=== PATIENT | male | born 2000 ===

== ENCOUNTER 2020-02-29 01:50 | Emergency (ER) | payer MEDICAID, SELFPAY ==
[2020-02-29 02:10] VITALS: PULSE 69; RESP 16; TEMP 36.6; O2SAT 98; BMI 26.8
--- NOTE | 2020-02-29 02:16 | PC.NURSE ---
PT TO ROOM WITH C/O LEFT LOWER DENTAL PAIN WHICH STARTED YESTERDAY.
--- NOTE | 2020-02-29 03:07 | ED.DENTAL ---
HPI - Dental/Oral General Chief complaint: Dental/Oral Stated complaint: DENTAL PAIN Time Seen by Provider: 02/29/20 03:07 History of Present Illness HPI Narrative: Patient complaining of left lower jaw pain. Dental pain. Worse with chewing. Patient denies any change in voice. No difficulty breathing. No nausea no vomiting. No systemic complaints. Pain is been ongoing for few days. Related Data Previous Rx's Medication Instructions Recorded ibuprofen 400 mg PO Q6H PRN #20 tab 02/29/20 penicillin V potassium 500 mg PO TID 7 Days #21 tab 02/29/20 Allergies Allergy/AdvReac Type Severity Reaction Status Date / Time No Known Allergies* Allergy Uncoded 01/17/20 23:40 Review of Systems Review of Systems: Constitutional: No Weight loss, No Fever, No Chills, No Night Sweats, No Fatigue, No Malaise ENT/Mouth: No Hearing loss, No Ear Pain, No Nasal Congestion, No Sinus Pain, No Hoarseness, No sore throat, No Rhinorrhea, No Swallowing Difficulty, positive pain to left lower jaw Eyes: No Eye Pain, No Swelling, No Redness, No Foreign Body, No Discharge, No Vision Changes Cardiovascular: No Chest Pain, No SOB, No Dyspnea on Exertion, No Orthopnea, No Edema, No Palpitations Respiratory: No Cough, No Sputum, No Wheezing, No Smoke Exposure, No Dyspnea Gastrointestinal: No Nausea, No Vomiting, No Diarrhea, No Constipation, No abdominal Pain, No Hematochezia, No Melena Genitourinary: no irregular bleeding, No Dysuria, No Urinary Frequency, No Hematuria, No Urinary Incontinence, No Urgency, No Flank Pain, No Urinary Flow Changes, No Hesitancy Musculoskeletal: No joint pain, No Myalgias, No Joint Swelling Skin: No Skin Lesions, No rash Neuro: No Weakness, No Numbness, No Paresthesias, No Loss of Consciousness, No Dizziness, No Headache Psych: No Anxiety/Panic, No Depression, No SI/HI/AH/VH, No Social Issues, Heme/Lymph: No Bruising, No Bleeding,No Lymphadenopathy Endocrine: No Polyuria, No Polydipsia, No Temperature Intolerance PMFSH Social History Social History Advance Directives: No Advance Directives Information Provided: No Physical Exam Vital Signs: Vital Signs: Last Vital Signs Temp 97.8 F 02/29/20 02:10 Pulse 69 02/29/20 02:10 Resp 16 02/29/20 02:10 Pulse Ox 98 02/29/20 02:10 Body Mass Index 26.8 Appearance: Alert. Oriented X3. No acute distress. Eyes: Pupils equal, round and reactive to light. ENT: Mucous membrane is moist. There is no tenderness on palpation of the mandibular floor. There is no gross abscess palpable in the left lower mandibular area, posterior pharynx is normal. There is no discharge noted. Neck: Normal inspection. Neck supple. No lymph nodes noted. No crepitus CVS: Normal heart rate and rhythm. Pulses normal. Normal S1 and S2 Respiratory: No respiratory distress. Breath sounds normal. No Wheezing. No rales Abdomen: Soft and nontender. No rigidity. No distention. good BS x4 Skin: Skin warm and dry. Normal skin color. Normal skin turgor. Extremities: No lower extremity edema. Neurovascular intact to all extremities. No Lacerations. No Rash Neuro: Oriented X 3. No motor deficit. No sensory deficit. Moving all extermities. No slurred speech MDM - Dental/Oral MDM Narrative Medical decision making narrative: Patient well-appearing no acute distress. Floor the mouth was soft. There is no redness noted in the posterior pharynx. There is no gross abscess noted. There is no gross cavity noted. Given patient's pain will give Motrin. Will give antibiotics. Will have patient follow-up with dentistry in a.m.. Differential Diagnosis Differential diagnosis: Likely toothache Medical Records Attestation: I reviewed the patient's medical records. Lab Data Attestation: I reviewed the patient's lab results. Discharge Plan Discharge Clinical Impression: Toothache Patient Disposition: Home, Self-Care Instructions: Toothache (ED) Prescriptions: New ibuprofen 400 mg tablet 400 mg PO Q6H PRN (Reason: pain) Qty: 20 RF: 0 penicillin V potassium 500 mg tablet 500 mg PO TID 7 Days Qty: 21 RF: 0 Referrals: [facility] [Provider Group] - 2 days
[2020-02-29] MEDS: Ibuprofen 400 MG TABLET PO (03:32)
[2020-02-29] MEDS: Penicillin V Potassium 250 MG TABLET 500 MG PO (03:33)
== END 2020-02-29 03:47 | disposition home or self-care (01) ==
PROVIDERS: Emergency Provider Emergency Medicine Emergency Medical Services
DX: K08.89 Other specified disorders of teeth and supporting structures (principal)
CPT/HCPCS: 99283

== ENCOUNTER 2020-03-01 04:51 | Emergency (ER) | payer MEDICAID, SELFPAY ==
[2020-03-01 04:59] VITALS: BP 126/79; PULSE 66; RESP 16; TEMP 36.5; O2SAT 100; BMI 25.1
--- NOTE | 2020-03-01 05:19 | ED.GENADULT ---
HPI - General Adult General Chief complaint: General Medical Stated complaint: MOUTH SWELLING Time Seen by Provider: 03/01/20 05:19 History of Present Illness HPI narrative: Patient is a 20-year-old male presents today with having pain to the lower left jaw. Patient complaining of increasing pain from yesterday. Was seen here in the emergency department started on penicillin and ibuprofen. Patient states that despite the medication the symptoms got worse. No fever no chills. No systemic complaints. Able to tolerate fluid no change in voice. No cough no congestion or upper respiratory symptoms Related Data Previous Rx's Medication Instructions Recorded ibuprofen 400 mg PO Q6H PRN #20 tab 02/29/20 penicillin V potassium 500 mg PO TID 7 Days #21 tab 02/29/20 Allergies Allergy/AdvReac Type Severity Reaction Status Date / Time No Known Allergies* Allergy Uncoded 01/17/20 23:40 Review of Systems Review of Systems: Constitutional: No Weight loss, No Fever, No Chills, No Night Sweats, No Fatigue, No Malaise ENT/Mouth: No Hearing loss, No Ear Pain, No Nasal Congestion, No Sinus Pain, No Hoarseness, No sore throat, No Rhinorrhea, positive swelling to the left lower jaw. eyes: No Eye Pain, No Swelling, No Redness, No Foreign Body, No Discharge, No Vision Changes Cardiovascular: No Chest Pain, No SOB, No Dyspnea on Exertion, No Orthopnea, No Edema, No Palpitations Respiratory: No Cough, No Sputum, No Wheezing, No Smoke Exposure, No Dyspnea Gastrointestinal: No Nausea, No Vomiting, No Diarrhea, No Constipation, No abdominal Pain, No Hematochezia, No Melena Genitourinary: no irregular bleeding, No Dysuria, No Urinary Frequency, No Hematuria, No Urinary Incontinence, No Urgency, No Flank Pain, No Urinary Flow Changes, No Hesitancy Musculoskeletal: No joint pain, No Myalgias, No Joint Swelling Skin: No Skin Lesions, No rash Neuro: No Weakness, No Numbness, No Paresthesias, No Loss of Consciousness, No Dizziness, No Headache Psych: No Anxiety/Panic, No Depression, No SI/HI/AH/VH, No Social Issues, Heme/Lymph: No Bruising, No Bleeding,No Lymphadenopathy Endocrine: No Polyuria, No Polydipsia, No Temperature Intolerance [facility] Past Medical History Attestation statement: The following information was validated with the patient. Source: unable to obtain Medical History (Updated 03/01/20 @ 05:27 by Eva Potts MD) No known health problems Social History Social History Advance Directives: No Advance Directives Information Provided: No Physical Exam Vital Signs: Vital Signs: Last Vital Signs Temp 97.7 F 03/01/20 04:59 Pulse 66 03/01/20 04:59 Resp 16 03/01/20 04:59 BP 126/79 03/01/20 04:59 Pulse Ox 100 03/01/20 04:59 Body Mass Index 25.1 Appearance: Alert. Oriented X3. No acute distress. Eyes: Pupils equal, round and reactive to light. ENT: Pharynx normal. Positive minimal swelling to the left lower jaw near the midline. No fluctuance on palpation. Floor of the mouth is soft. There is no posterior pharynx erythema. Tonsils are not enlarged. Voice is normal. Neck: Normal inspection. Neck supple. No lymph nodes noted. No crepitus, no crepitus on palpation, trachea is midline CVS: Normal heart rate and rhythm. Pulses normal. Normal S1 and S2 Respiratory: No respiratory distress. Breath sounds normal. No Wheezing. No rales Abdomen: Soft and nontender. No rigidity. No distention. good BS x4 Skin: Skin warm and dry. Normal skin color. Normal skin turgor. Extremities: No lower extremity edema. Neurovascular intact to all extremities. No Lacerations. No Rash Neuro: Oriented X 3. No motor deficit. No sensory deficit. Moving all extermities. No slurred speech Medical Decision Making MDM Narrative Medical decision making narrative: Question early dental cellulitis/dental decay. Patient already on antibiotics will ask patient to follow up closely with his dentist. Continue Motrin for pain. Worsening condition return. There is no difficulty with his voice. Patient is able to swallow. In no distress Discharge Plan Discharge Clinical Impression: Toothache Patient Disposition: Home, Self-Care Prescriptions: No Action ibuprofen 400 mg tablet 400 mg PO Q6H PRN (Reason: pain) Qty: 20 RF: 0 penicillin V potassium 500 mg tablet 500 mg PO TID 7 Days Qty: 21 RF: 0 Referrals: [facility] [Physician] - 2 days (Please follow-up with the dentist at [facility])
[2020-03-01] MEDS: HYDROcodone Bit/Acetam 5/325 TABLET 1 TAB PO (05:28)
== END 2020-03-01 05:36 | disposition home or self-care (01) ==
PROVIDERS: Emergency Provider Emergency Medicine Emergency Medical Services
DX: K02.9 Dental caries, unspecified (principal)
CPT/HCPCS: 99283; 99284

== ENCOUNTER 2020-06-03 11:07 | Outpatient (REF) | payer OTHER, SELFPAY | END 2020-06-03 11:08 | disposition home or self-care (01) | LOC: HO.LAB 11:07 | PROVIDERS: Visit Provider Internal Medicine | DX: Z20.822 Contact with and (suspected) exposure to COVID-19 (principal) | CPT/HCPCS: 36415; C9803; U0003; U0005 ==

== ENCOUNTER 2020-08-04 14:15 | Outpatient (REF) | payer OTHER, SELFPAY ==
[2020-08-04 14:45] LABS: COVID-19 Test Negative (Negative); IDNOW Serial# 55D5AD1C
== END 2020-08-04 14:16 | disposition home or self-care (01) ==
LOC: HO.LAB 14:15
PROVIDERS: Visit Provider Internal Medicine
DX: Z20.822 Contact with and (suspected) exposure to COVID-19 (principal)
CPT/HCPCS: 36415; 87635; C9803

== ENCOUNTER 2021-08-25 17:13 | Emergency (ER) | payer OTHER, SELFPAY ==
--- NOTE | 2021-08-25 17:29 | ECG_ITS ---
Test Reason : palpitations Blood Pressure : / mmHG Vent. Rate : 076 BPM Atrial Rate : 076 BPM P-R Int : 144 ms QRS Dur : 080 ms QT Int : 354 ms P-R-T Axes : 071 072 032 degrees QTc Int : 398 ms Normal sinus rhythm Normal ECG When compared with ECG of 18-JAN-2020 00:54, No significant change was found Referred By: Elizabeth Velazco Electronically Signed By:Joaquin Valdez
[2021-08-25 17:59] VITALS: BP 147/54; PULSE 81; RESP 19; TEMP 36.6; O2SAT 98; BMI 24.4
[2021-08-25 18:36] LABS: Appearance Urine CLEAR; Color Urine STRAW; Glucose Urine UA NEG (NEG); Leukocyte Esterase Urine NEG (NEG); MANUAL DIFF FLAG NO; Nitrite Urine NEG (NEG); Specific Gravity - Urine <= 1.005 (1.005-1.025); Urine Blood NEG (NEG); Urine Ketones NEG (NEG); Urine Protein NEG (NEG-TRACE)
[2021-08-25 18:39] LABS: Basophils Absolute Auto 0.1 X10*3/uL (0.0-0.2); Basophils Percent Auto 1.3 % (0-2); Eosinophils Absolute Auto 0.1 X10*3/uL (0.0-0.4); Eosinophils Percent Auto 3.4 % (0-4); Hematocrit 45.8 % (42.0-52.0); Hemoglobin 15.7 g/dl (14.0-18.0); Lymphocytes Absolute Auto 1.1 X10*3/uL (1.2-4.9); Lymphocytes Percent Auto 29.1 % (20-40); Mean Corpuscular HGB Conc 34.3 g/dl (31.0-36.0); Mean Corpuscular Volume 84.7 fL (80.0-98.0); Mean Platelet Volume 9.5 fL (9.4-12.4); Monocytes Absolute Auto 0.3 X10*3/uL (0.1-1.2); Monocytes Percent Auto 6.4 % (2-11); Neutrophils Absolute Auto 2.3 x10*3/uL (2.0-8.3); Neutrophils Percent Auto 59.8 % (45-73); Platelet Count 240 X10*3/uL (160-400); Red Blood Count 5.41 X10*6/uL (4.60-5.80); Red Cell Distribution Width 12.1 % (11.0-16.0); White Blood Count 3.9 X10*3/uL (4.8-10.8)
[2021-08-25 18:51] LABS: Amphetamine Screen Urine Not Detected (Not Detect); Barbiturates, Urine Not Detected (Not Detect); Benzodiazepines Screen Urine Not Detected (Not Detect); Cannabinoid Screen Urine POSITIVE (Not Detect); Cocaine Screen Urine Not Detected (Not Detect); Fentanyl, urine Not Detected (Not Detect); Opiate Screen Urine Not Detected (Not Detect); Phencyclidine Screen Urine Not Detected (Not Detect)
[2021-08-25 18:55] LABS: Alanine Aminotransferase 71 U/L (0-40); Albumin Level 4.6 g/dL (3.5-5.0); Alkaline Phosphatase 72 U/L (39-117); Anion Gap 13 (12-20); Aspartate Amino Transferase 48 U/L (5-37); Bilirubin Direct 0.2 mg/dL (0.0-0.5); Bilirubin Total 0.4 mg/dL (0.0-1.0); Blood Urea Nitrogen 16 mg/dL (9-16); Calcium 10.3 mg/dL (8.4-10.2); Carbon Dioxide 28 mmol/L (22-29); Chloride 104 mmol/L (96-108); Creatinine Clr Calc Pharmacy 123.4; Estimated Glomerular Filt Rate > 60; Glucose Random 102 mg/dL (60-115); Potassium 4.2 mmol/L (3.3-5.1); Sodium 141 mmol/L (135-145); Total Protein 7.5 g/dL (6.5-8.0)
[2021-08-25 19:00] LABS: Troponin-I High Sensitivity < 3.5 ng/L (<3.5-35.0)
[2021-08-25 19:15] LABS: TSH reflex Free T4 1.28 uIU/mL (0.32-4.0)
--- NOTE | 2021-08-25 19:17 | ED.ARRPALP ---
HPI - Arrhythmia/Palpitations General Chief Complaint: Arrhythmia/Palpitations Stated Complaint: palpitations Time Seen by Provider: 08/25/21 17:29 Source: patient and family Mode of arrival: ambulatory Limitations: no limitations History of Present Illness HPI narrative: 21-year-old male previously healthy here with reports of episode of palpitations which occurred for approximately 20 minutes and occurred at rest at 17:00 today. Patient tells me he was sitting down on the couch started feel like his heart was racing and beating very fast with some shortness of breath. Patient denies any nausea, vomiting, diaphoresis, cough, leg swelling, leg pain. Patient denies any recent sick contacts or travel. Patient tells me that he has had resolved of all symptoms since arriving to the emergency department. No previous history of same symptoms. Related Data Previous Rx's Medication Instructions Recorded ibuprofen 400 mg tablet 400 mg PO Q6H PRN #20 tab 02/29/20 penicillin V potassium 500 mg 500 mg PO TID 7 Days #21 tab 02/29/20 tablet Allergies Allergy/AdvReac Type Severity Reaction Status Date / Time No Known Allergies* Allergy Uncoded 01/17/20 23:40 Review of Systems Review of Systems: Yes all other systems are reviewed and are negative Constitutional: Constitutional: Reports no additional constitutional complaints, Denies body ache(s), Denies chills, Denies fever(s), Denies headache(s) and Denies weakness Eyes: Eyes: Reports no additional eye complaints and Denies change in vision ENT: Reports system reviewed and no additional complaints, except as documented, Denies dizziness, Denies headache(s), Denies nasal congestion, Denies nasal discharge and Denies neck pain Cardiovascular: Cardiovascular: Reports no additional cardiovascular complaints, Denies chest pain, Denies leg edema, Reports palpitations and Denies dyspnea Respiratory: Respiratory: Reports no additional respiratory complaints, Denies cough and Denies dyspnea Gastrointestinal: Gastrointestinal: Reports no additional gastrointestinal complaints, Denies abdominal pain, Denies diarrhea, Denies nausea and Denies vomiting Genitourinary: Genitourinary: Denies urinary incontinence Musculoskeletal: Musculoskeletal: Reports no additional musculoskeletal complaints, Denies back pain, Denies arthralgias, Denies joint swelling, Denies neck pain, Denies numbness and Denies tingling Integumentary/Breasts: Skin/Breast: Reports system reviewed and no additional complaints, except as docu and Denies rash Neurologic: Reports system reviewed and no additional complaints, except as documented, Denies Abnormal speech present, Denies dizziness, Denies headache(s), Denies numbness, Denies tingling and Denies weakness Endocrine: Endocrine: Reports palpitations PMFSH Past Medical History Attestation statement: The following information was validated with the patient. Source: old records reviewed and nursing notes reviewed Medical History No known health problems Social History Social History Advance Directives: No Advance Directives Information Provided: No Physical Exam Vital Signs: Vital Signs: Last Vital Signs Temp 98 F 08/25/21 17:59 Pulse 81 08/25/21 17:59 Resp 19 08/25/21 17:59 BP 147/54 H 08/25/21 17:59 Pulse Ox 98 08/25/21 17:59 BMI result Body Mass Index 24.4 Const: General: cooperative, healthy appearing, comfortable and no acute distress Orientation/consciousness: patient oriented x3 Limitations: no limitations HEENT: Head: Yes normal to inspection Ears: hearing grossly normal bilaterally General nose exam: Normal external nose present Face and sinus: Yes normal facial exam Mouth: Normal oral and palatal mucosa present Throat: Yes posterior oropharynx normal Eyes: General: appearance normal, both eyes and all related structures Pupils: Equal, round and reactive pupils present Neck: Neck: Yes normal visual inspection Chest: Chest palpation & inspection: normal inspection of the chest Resp: Effort & Inspection: normal respiratory effort Auscultation: clear to auscultation bilaterally Cardio: Rate: regular rate Rhythm: regular rhythm Peripheral pulses: Peripheral pulses 2+ throughout GI: Inspection: Yes normal to inspection Palpation (GI): Soft to palpation and nontender Auscultation: normal bowel sounds Back/Spine/Pelvis: Thoracic/Lumbar Spine: thoracic and lumbar spine normal to inspection Skin: General skin exam: no rashes or lesions noted Neuro: General: patient oriented x3, no focal motor deficits and normal sensation to monofilament Cranial nerves: Yes Equal, round and reactive pupils present Cognition (Neuro): normal cognition Speech: No Abnormal speech present Gait exam (Neuro): Normal gait present Motor exam (neuro): 08/26 motor strength present throughout Extrem: General: Yes normal to inspection, Yes no pedal edema and Yes no calf tenderness Course Course Course Narrative: 21-year-old male here with reports of palpitations which occurred at rest and occurred prior to arrival and are now resolved. Patient has no other reported symptoms at the time of his palpitations with the exception of some mild shortness of breath. His exam is benign. His vitals are stable. -reviewed triage labs which are unremarkable. EKG shows some nonspecific ST changes. Initial troponin is negative. Patient denies any associated chest pain. Will plan to repeat troponin. Reevaluation(s) Reevaluation #1: Troponin x2 is flat. Patient has had no symptoms since being here in the emergency department. Recommend follow-up with primary care doctor. We discussed worrisome signs and symptoms such as persistent palpitations, shortness of breath or chest pain and when to return to the emergency department. Comfortable discharge home. Time: 20:00 MDM - Arrhythmia/Palpitations MDM Narrative Medical decision making narrative: Tachyarrhythmia, ACS, anxiety Medical Records Attestation: I reviewed the patient's medical records. Lab Data Attestation: I reviewed the patient's lab results. Result diagrams: 08/25/21 18:29 08/25/21 18:29 Labs: Lab Results 08/25/21 08/25/21 08/25/21 Range/Units 18:29 18:29 18:29 WBC 3.9 L (4.8-10.8) X10*3/uL RBC 5.41 (4.60-5.80) X10*6/uL Hgb 15.7 (14.0-18.0) g/dl Hct 45.8 (42.0-52.0) % MCV 84.7 (80.0-98.0) fL MCH 29.0 (27.0-33.0) pg MCHC 34.3 (31.0-36.0) g/dl RDW 12.1 (11.0-16.0) % Plt Count 240 (160-400) X10*3/uL MPV 9.5 (9.4-12.4) fL Immature Gran % (Auto) 0.0 (0.0-0.4) % Neut % (Auto) 59.8 (45-73) % Lymph % (Auto) 29.1 (20-40) % [place] % (Auto) 6.4 (2-11) % Eos % (Auto) 3.4 (0-4) % Baso % (Auto) 1.3 (0-2) % Lymph # (Auto) 1.1 L (1.2-4.9) X10*3/uL [place] # (Auto) 0.3 (0.1-1.2) X10*3/uL Eos # (Auto) 0.1 (0.0-0.4) X10*3/uL Baso # (Auto) 0.1 (0.0-0.2) X10*3/uL Abs Immat Gran (auto) 0.00 (0.00-0.03) X10*3/uL Absolute Neuts (auto) 2.3 (2.0-8.3) x10*3/uL Absolute Nucleated RBC 0.000 (0.0-0.012) X10*3/uL Nucleated RBC % (auto) 0.0 (0.0-0.2) /100WBC Sodium 141 (135-145) mmol/L Potassium 4.2 (3.3-5.1) mmol/L Chloride 104 (96-108) mmol/L Carbon Dioxide 28 (22-29) mmol/L Anion Gap 13 (12-20) BUN 16 (9-16) mg/dL Creatinine 0.87 (0.5-1.4) mg/dL Estim Creat Clear Calc 123.4 Estimated GFR > 60 Random Glucose 102 (60-115) mg/dL Calcium 10.3 H (8.4-10.2) mg/dL Total Bilirubin 0.4 (0.0-1.0) mg/dL Direct Bilirubin 0.2 (0.0-0.5) mg/dL AST 48 H (5-37) U/L ALT 71 H (0-40) U/L Alkaline Phosphatase 72 (39-117) U/L Troponin I High Sens < 3.5 (<3.5-35.0) ng/L Total Protein 7.5 (6.5-8.0) g/dL Albumin 4.6 (3.5-5.0) g/dL TSH (0.32-4.0) uIU/mL Urine Color Urine Appearance Urine pH (5.0-8.0) Ur Specific [place] (1.005-1.025) Urine Protein (NEG-TRACE) MG/DL Urine Glucose (UA) (NEG) MG/DL Urine Ketones (NEG) MG/DL Urine Blood (NEG) Urine Nitrite (NEG) Ur Leukocyte Esterase (NEG) Urine Opiates Screen (Not Detect) Urine Fentanyl Screen (Not Detect) Ur Barbiturates Screen (Not Detect) Ur Phencyclidine Scrn (Not Detect) Ur Amphetamines Screen (Not Detect) U Benzodiazepines Scrn (Not Detect) Urine Cocaine Screen (Not Detect) U Marijuana (THC) Screen (Not Detect) 08/25/21 08/25/21 08/25/21 Range/Units 18:29 18:29 18:29 WBC (4.8-10.8) X10*3/uL RBC (4.60-5.80) X10*6/uL Hgb (14.0-18.0) g/dl Hct (42.0-52.0) % MCV (80.0-98.0) fL MCH (27.0-33.0) pg MCHC (31.0-36.0) g/dl RDW (11.0-16.0) % Plt Count (160-400) X10*3/uL MPV (9.4-12.4) fL Immature Gran % (Auto) (0.0-0.4) % Neut % (Auto) (45-73) % Lymph % (Auto) (20-40) % [place] % (Auto) (2-11) % Eos % (Auto) (0-4) % Baso % (Auto) (0-2) % Lymph # (Auto) (1.2-4.9) X10*3/uL [place] # (Auto) (0.1-1.2) X10*3/uL Eos # (Auto) (0.0-0.4) X10*3/uL Baso # (Auto) (0.0-0.2) X10*3/uL Abs Immat Gran (auto) (0.00-0.03) X10*3/uL Absolute Neuts (auto) (2.0-8.3) x10*3/uL Absolute Nucleated RBC (0.0-0.012) X10*3/uL Nucleated RBC % (auto) (0.0-0.2) /100WBC Sodium (135-145) mmol/L Potassium (3.3-5.1) mmol/L Chloride (96-108) mmol/L Carbon Dioxide (22-29) mmol/L Anion Gap (12-20) BUN (9-16) mg/dL Creatinine (0.5-1.4) mg/dL Estim Creat Clear Calc Estimated GFR Random Glucose (60-115) mg/dL Calcium (8.4-10.2) mg/dL Total Bilirubin (0.0-1.0) mg/dL Direct Bilirubin (0.0-0.5) mg/dL AST (5-37) U/L ALT (0-40) U/L Alkaline Phosphatase (39-117) U/L Troponin I High Sens (<3.5-35.0) ng/L Total Protein (6.5-8.0) g/dL Albumin (3.5-5.0) g/dL TSH 1.28 (0.32-4.0) uIU/mL Urine Color STRAW Urine Appearance CLEAR Urine pH 6.0 (5.0-8.0) Ur Specific [place] <= 1.005 (1.005-1.025) Urine Protein NEG (NEG-TRACE) MG/DL Urine Glucose (UA) NEG (NEG) MG/DL Urine Ketones NEG (NEG) MG/DL Urine Blood NEG (NEG) Urine Nitrite NEG (NEG) Ur Leukocyte Esterase NEG (NEG) Urine Opiates Screen Not Detected (Not Detect) Urine Fentanyl Screen Not Detected (Not Detect) Ur Barbiturates Screen Not Detected (Not Detect) Ur Phencyclidine Scrn Not Detected (Not Detect) Ur Amphetamines Screen Not Detected (Not Detect) U Benzodiazepines Scrn Not Detected (Not Detect) Urine Cocaine Screen Not Detected (Not Detect) U Marijuana (THC) Screen POSITIVE H (Not Detect) 08/25/21 Range/Units 19:19 WBC (4.8-10.8) X10*3/uL RBC (4.60-5.80) X10*6/uL Hgb (14.0-18.0) g/dl Hct (42.0-52.0) % MCV (80.0-98.0) fL MCH (27.0-33.0) pg MCHC (31.0-36.0) g/dl RDW (11.0-16.0) % Plt Count (160-400) X10*3/uL MPV (9.4-12.4) fL Immature Gran % (Auto) (0.0-0.4) % Neut % (Auto) (45-73) % Lymph % (Auto) (20-40) % [place] % (Auto) (2-11) % Eos % (Auto) (0-4) % Baso % (Auto) (0-2) % Lymph # (Auto) (1.2-4.9) X10*3/uL [place] # (Auto) (0.1-1.2) X10*3/uL Eos # (Auto) (0.0-0.4) X10*3/uL Baso # (Auto) (0.0-0.2) X10*3/uL Abs Immat Gran (auto) (0.00-0.03) X10*3/uL Absolute Neuts (auto) (2.0-8.3) x10*3/uL Absolute Nucleated RBC (0.0-0.012) X10*3/uL Nucleated RBC % (auto) (0.0-0.2) /100WBC Sodium (135-145) mmol/L Potassium (3.3-5.1) mmol/L Chloride (96-108) mmol/L Carbon Dioxide (22-29) mmol/L Anion Gap (12-20) BUN (9-16) mg/dL Creatinine (0.5-1.4) mg/dL Estim Creat Clear Calc Estimated GFR Random Glucose (60-115) mg/dL Calcium (8.4-10.2) mg/dL Total Bilirubin (0.0-1.0) mg/dL Direct Bilirubin (0.0-0.5) mg/dL AST (5-37) U/L ALT (0-40) U/L Alkaline Phosphatase (39-117) U/L Troponin I High Sens < 3.5 (<3.5-35.0) ng/L Total Protein (6.5-8.0) g/dL Albumin (3.5-5.0) g/dL TSH (0.32-4.0) uIU/mL Urine Color Urine Appearance Urine pH (5.0-8.0) Ur Specific [place] (1.005-1.025) Urine Protein (NEG-TRACE) MG/DL Urine Glucose (UA) (NEG) MG/DL Urine Ketones (NEG) MG/DL Urine Blood (NEG) Urine Nitrite (NEG) Ur Leukocyte Esterase (NEG) Urine Opiates Screen (Not Detect) Urine Fentanyl Screen (Not Detect) Ur Barbiturates Screen (Not Detect) Ur Phencyclidine Scrn (Not Detect) Ur Amphetamines Screen (Not Detect) U Benzodiazepines Scrn (Not Detect) Urine Cocaine Screen (Not Detect) U Marijuana (THC) Screen (Not Detect) ECG Data Attestation: I personally reviewed and interpreted this ECG as follows: ECG interpretation date: 08/25/21 ECG interpretation time: 17:55 Interpretation: Normal sinus rhythm with a rate of 76, normal CA, normal QRS, normal QT, nonspecific ST changes in leads 2 and 3. Discharge Plan Discharge Clinical Impression: Palpitations Patient Disposition: Home, Self-Care Instructions: Heart Palpitations (DC) Additional Instructions: Your testing today all looked normal. We did discuss that you should follow-up with the primary care doctor. You may call the number on the back of insurance card to establish a new primary care doctor. In the meantime limit caffeine intake. Stay well hydrated. Change positions slowly. Return for any persistent palpitations, severe chest pain, difficulty breathing Prescriptions: No Action ibuprofen 400 mg tablet 400 mg PO Q6H PRN (Reason: pain) Qty: 20 0RF penicillin V potassium 500 mg tablet 500 mg PO TID 7 Days Qty: 21 0RF Referrals: Physician,None [Primary Care Provider] - Interventions: ED Discharge Assessment Last Done: 08/25/21 20:28 Discharge Date/Time: 08/25/21 20:30
[2021-08-25 19:45] LABS: Troponin-I High Sensitivity < 3.5 ng/L (<3.5-35.0)
== END 2021-08-25 20:30 | disposition home or self-care (01) ==
PROVIDERS: Emergency Medicine; Nurse Practitioner Family; Emergency Provider Emergency Medicine
DX: R00.2 Palpitations (principal)
CPT/HCPCS: 36415; 80048; 80076; 80307; 81003; 84443; 84484; 85025; 93005; 99283

== ENCOUNTER 2023-09-08 14:36 | Emergency (ER) | payer OTHER, SELFPAY ==
--- NOTE | ~2023-09-08 | XR_ITS ---
EXAMINATION: XR HAND, RIGHT CLINICAL INFORMATION: Right hand pain after trauma COMPARISON: None available. TECHNIQUE: PA, lateral, and oblique views of the right hand. XR/XR hand RT min 3V FINDINGS AND IMPRESSION: Acute boxer's type fracture of the distal fifth metacarpal resulting in mild cortical overlap and 1 mm of cortical bone step-off anterolaterally and approximately 25 degrees anterior angulation of the head fragment. Otherwise, the metacarpals and phalanges are normal. Bones have normal alignment throughout the hand and wrist.
[2023-09-08 14:52] VITALS: BP 128/78; PULSE 100; RESP 20; TEMP 37.1; O2SAT 98; BMI 23.5
--- NOTE | 2023-09-08 14:52 | ED.GENADULT ---
HPI - General Adult General Chief complaint: Extremity Injury, Upper Stated complaint: Hand injury Time Seen by Provider: 09/08/23 14:56 Source: patient Mode of arrival: ambulatory Limitations: no limitations History of Present Illness HPI narrative: 23 year old male RHD presents w/ r hand pain hurt his hand while sparring yesterday. He was wearing gloves when this happened. Reports difficuly moving all fingers but worse to the right pinky finger on R. 7/10 pain reported. Denies numbness, tingling, fevers, chills, previous injuries to this hand. No other injuries reported Related Data Home Medications ?Medication ?Instructions ?Recorded ?Confirmed No Known Home Meds 09/21/23 09/21/23 Allergies Allergy/AdvReac Type Severity Reaction Status Date / Time No Known Allergies Allergy Verified 10/03/23 12:30 Review of Systems Review of Systems: Yes all other systems are reviewed and are negative [facility] Past Medical History Attestation statement: The following information was validated with the patient. 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 Oriented X3.? No acute cardiopulmonary distress distress.? Head: Normocephalic, atraumatic, no step-offs or deformities Neck: Normal inspection.? Neck supple.? CVS: Pulses normal.? Respiratory: No respiratory distress.? Skin: ? Normal skin color. Extremities: 5/5 strength to bilateral upper and lower extremities + full but painful rom to all fingers on r particularly pinky finger. Normal opposition and reposition on the R. + TTP overlying right 5th metacarpal w/ slight swelling and ecchymosis.. 2+ radial pulses equal and b/l. No wrist drop b/l. Normal sensation distally on all digits. Back: No midline tenderness, no C-spine tenderness, full range of motion, No CVA tenderness bilaterally Neuro: Oriented X 3.? No motor deficit.? No sensory deficit. Course Course Course Narrative: This is an RME done by [facility] Sanz: Additional HPI, ROS, PE not included below will be deferred to primary provider. 23 year old male RHD presents w/ r hand pain hurt his hand while sparring yesterday. He was wearing gloves when this happened. Reports difficuly moving all fingers but worse to the right pinky finger on R. 7/10 pain reported. Denies numbness, tingling, fevers, chills, previous injuries to this hand. No other injuries reported Appearance: Alert.? Oriented X3.? No acute cardiopulmonary distress distress.? Head: Normocephalic, atraumatic, no step-offs or deformities Neck: Normal inspection.? Neck supple.? CVS: Pulses normal.? Respiratory: No respiratory distress.? Skin: ? Normal skin color. Extremities: 5/5 strength to bilateral upper and lower extremities + full but painful rom to all fingers on r particularly pinky finger. Normal opposition and reposition on the R. + TTP overlying right 5th metacarpal w/ slight swelling and ecchymosis.. 2+ radial pulses equal and b/l. No wrist drop b/l. Normal sensation distally on all digits. Back: No midline tenderness, no C-spine tenderness, full range of motion, No CVA tenderness bilaterally Neuro: Oriented X 3.? No motor deficit.? No sensory deficit. Medical Decision Making Medical Decision Making [facility] Narrative: 1457 23 year old male presents w/ r hand pain sp right hand trauma while parring last night PE 5/5 strength to bilateral upper and lower extremities + full but painful rom to all fingers on r particularly pinky finger. Normal opposition and reposition on the R. + TTP overlying right 5th metacarpal w/ slight swelling and ecchymosis.. 2+ radial pulses equal and b/l. No wrist drop b/l. Normal sensation distally on all digits. History and physical exam concerning for fracture versus dislocation likely boxer's fracture. Unlikely neurovascular compromise, threat to limb. No signs of arterial or venous occlusion. Plan imaging Differential Diagnosis Differential Diagnoses: The differential diagnosis associated with the presentation includes History and physical exam concerning for fracture versus dislocation likely boxer's fracture. Unlikely neurovascular compromise, threat to limb. No signs of arterial or venous occlusion. Admission/Observation Consideration of admission/observation: Escalation of care including admission/observation considered Unlikely Independent Interpretation I performed an independent interpretation of an: Plain X-Ray Radiology Impression Discussion of test interpretation with radiology: I have reviewed the radiologist's reading. Prescription Management I considered prescription management with: Pain Medication Critical Care Time Critical Care Time Critical Care Time: No Discharge Plan Discharge Clinical Impression: Boxer's fracture Patient Disposition: Home, Self-Care Instructions: Hand Fracture (ED), Boxer Fracture (ED), R.I.C.E. Treatment (ED) Additional Instructions: Take your medications as prescribed. If you were prescribed antibiotics today, it is important that you take your medication to their entirety, do not skip any doses, do not finish them early. Follow-up with your primary care provider this week. Return to the emergency department with new or worsening symptoms. Such as fevers, chills, chest pain, shortness of breath, nausea, vomiting, dizziness, headache, vision changes, lethargy In case of emergency call 911 Take naproxen as needed for pain. Follow-up with the orthopedic team Prescriptions: No Action No Known Home Meds Referrals: [facility] [Provider Group] - 1 day Physician,None [Primary Care Provider] - 2 days Stand Alone Forms: Work/School Release Interventions: ED Discharge Assessment Last Done: 09/08/23 15:45 Discharge Date/Time: 09/08/23 15:53 Print Language: Romanian
[2023-09-08 15:45] VITALS: BP 128/78; PULSE 100; RESP 20; TEMP 37.1; O2SAT 98
== END 2023-09-08 15:53 | disposition home or self-care (01) ==
LOC: HO.ED 15:46
PROVIDERS: Emergency Provider Emergency Medicine
DX: S62.306A Unspecified fracture of fifth metacarpal bone, right hand, initial encounter for closed fracture (principal); W21.9XXA Striking against or struck by unspecified sports equipment, initial encounter; Y93.71 Activity, boxing; Y92.9 Unspecified place or not applicable; Y99.9 Unspecified external cause status
CPT/HCPCS: 73130; 99282; 99283

== ENCOUNTER 2023-09-19 12:01 | Outpatient (REF) | payer OTHER, SELFPAY ==
--- NOTE | ~2023-09-19 | XR_ITS ---
EXAMINATION: XR HAND, RIGHT CLINICAL INFORMATION: Pain in right hand. COMPARISON: 09/08/2023 TECHNIQUE: PA, lateral, and oblique views of the right hand. FINDINGS: Redemonstration of an impacted fracture of the distal 5th metacarpal, boxer's fracture, with impaction, mild displacement and anterior angulation of the head fracture fragment. Adjacent soft tissue swelling. Bone mineralization is normal. Alignment is similar. XR/XR hand RT min 3V IMPRESSION: Redemonstration of an impacted fracture of the distal 5th metacarpal, boxer's fracture, with impaction, mild displacement and anterior angulation of the head fracture fragment. Adjacent soft tissue swelling. Alignment is similar.
== END 2023-09-19 12:02 | disposition home or self-care (01) ==
LOC: HO.HOSX 12:01
PROVIDERS: Visit Provider Physician Assistant
DX: S62.336A Displaced fracture of neck of fifth metacarpal bone, right hand, initial encounter for closed fracture (principal); X58.XXXA Exposure to other specified factors, initial encounter; Y93.71 Activity, boxing; Y92.9 Unspecified place or not applicable; Y99.9 Unspecified external cause status
CPT/HCPCS: 73130; 99202

== ENCOUNTER 2023-09-19 12:23 | Outpatient (AMB) | payer OTHER, SELFPAY ==
[2023-09-19 12:32] VITALS: BMI 19.5
--- NOTE | 2023-09-19 12:32 | MHC.OFFVIS ---
Vital Signs 09/19/23 12:32 Height 5 ft 8 in Weight 128 lb BMI 19.5 Intake Visit Reasons: FC - right juan francisco colbert, DOI 09/07/23 Intake Note: Dago a 23 year old right hand dominant male who presents today for an ER follow up of right hand pain. Patient reports that he was boxing on 09/07/23 without hand wraps on and fractured his hand when punching. He [place] [facility] [place] where he was placed in a ulnar gutter splint. Splint removed and xr taken. Denies pain, numbness and tingling. He is currently out of work, will need updated work note. Allergies No Known Allergies* Allergy (Uncoded 09/08/23 14:55) Unknown HPI HPI FC - right juan francisco colbert, DOI 09/07/23: Details: 23-year-old right hand dominant male who presents to the office today for an ER follow-up of right 5th metacarpal injury, 09/07/23. He reports he was boxing without hand wraps on and fractured his hand when punching. He was seen at ED the following day where he was placed in a ulnar gutter splint. He states he has no pain, numbness or tingling. He is currently out of work. [facility] Medical History No known health problems Social History (Updated 09/19/23 @ 12:36 by Herminia Obrien CMA) Current occupational status: employed Current occupation: Electroplator Review of Systems Const All systems reviewed & are unremarkable except as noted in HPI and below Physical Exam Vital Signs: BMI result Body Mass Index 19.5 Const General: cooperative, healthy appearing, comfortable, no acute distress, well developed and alert Orientation/consciousness: patient oriented x3 HEENT Head: Yes normal to inspection, Yes normocephalic and Yes atraumatic Eyes General: appearance normal, both eyes and all related structures Neck Neck: Yes normal visual inspection and Yes no lymphadenopathy Resp Effort & Inspection: normal respiratory effort and able to speak in complete sentences Cardio Rate: regular rate Peripheral pulses: Peripheral pulses 2+ throughout GI Inspection: Yes normal to inspection Palpation (GI): Soft to palpation Skin General skin exam: no rashes or lesions noted Neuro General: patient oriented x3 Extrem Other: Right hand: Normal to inspection. There is some tenderness over the neck of the 5th metacarpal. There is no scissoring or angulation of the small finger. He can fully extend and bring his hand to a closed fist. Psych Appearance: grossly normal Mental Status: mental status grossly normal Results Reviewed Results Reviewed: Xrays were obtained in the office today and personally reviewed by me of the right hand show boxer fracture with angulation Assessment & Plan Assessment & Plan (1) Boxer's fracture: Code(s): S62.339A - Displaced fracture of neck of unspecified metacarpal bone, initial encounter for closed fracture Category: Medical Qualifiers: Encounter type: initial encounter Fracture type: closed Qualified Code(s): S62.339A - Displaced fracture of neck of unspecified metacarpal bone, initial encounter for closed fracture Plan I discussed the case with Dr. Ahumada. I discussed the extent of the injury to the patient and options available. Given the extent of the fracture pattern and high risk of further displacement, it is recommended that we surgically fix this to help with stability and restoring anatomy. I explained to the patient the procedure in detail along with the risks, benefits and alternatives.? Risks including but not limited to infection, wound breakdown, stiffness, ongoing pain, nonunion or malunion, and possible complications with hardware. He does understand all this and would like to proceed with closed versus open reduction internal fixation of the right 5th met[address] with Dr. Ahumada. He will be booked accordingly. Of note, fracture care was not billed today as patient will be going to surgery. Orders: Orders XR hand RT min 3V Today M79.641 - Pain in right hand Patient Instructions: Scribed for Javier Kenney PA-C, by Paulo Weinstein ophthalmic medical technician, on 09/19/2023 at 12:30 PM EST.? I, Javier Kenney PA-C, have personally reviewed and agree with the information entered by the scribe. Coding Level of Care Code New Pt Level 4 (30790) Diagnoses Closed boxer's fracture, initial encounter S62.339A Encounter type: initial encounter Fracture type: closed
== END 2023-09-19 13:13 | disposition home or self-care (01) ==
PROVIDERS: Visit Provider Physician Assistant
DX: S62.316A Displaced fracture of base of fifth metacarpal bone, right hand, initial encounter for closed fracture (principal)
CPT/HCPCS: 99204

== ENCOUNTER → 2023-09-21 11:22 | Day surgery (SDC) | payer OTHER, SELFPAY ==
--- NOTE | ~2023-09-21 | FL_ITS ---
EXAMINATION: XR FLUOROSCOPY WITH IMAGES CLINICAL INFORMATION: Right side fifth metacarpal ORIF. COMPARISON: None available. TECHNIQUE: Fluoroscopy Supervised By: Dr. Ahumada. Fluoroscopy Time: 21.92 seconds. Cumulative Dose: 0.6097 mGy. DAP: 0.0368 Gycm2. Images: 3. FINDINGS: Intraoperative fluoroscopy and spot films were performed during a procedure in the OR. There is a fracture of the distal fifth metacarpal with final image demonstrating a pin with good alignment of fracture fragments. Please see Dr. Levy' report for complete details. FL/FL guidance in OR IMPRESSION: Intraoperative fluoroscopy and spot films were obtained. Please see Dr. Levy' report for complete details.
[2023-09-21 11:45] VITALS: BP 116/80; PULSE 69; RESP 19; TEMP 36.4; O2SAT 98; BMI 23.3
[2023-09-21] MEDS: Lactated Ringers 1,000 ML 50 ML IVCONT (12:13)
--- NOTE | 2023-09-21 12:23 | P.CONAN_ITS ---
[facility] Past Medical History Medical History Marijuana use No known health problems Functional capacity: independent ambulation Family History Family history of problems with anesthesia: No Surgical History Surgical History No pertinent past surgical history History of Problems with Anesthesia: No Social History Social History Patient Tobacco Use Status: Never used Tobacco Substance Use Type: Marijuana Substance Use Frequency: Chronic Longstanding Are you DNR?: No Advance Directives: No Advance Directives Information Provided: Yes Nutrition Risks: No Nutritional Risk Current occupational status: employed Current occupation: [employer] Allergies Allergy/AdvReac Type Severity Reaction Status Date / Time No Known Allergies Allergy Verified 09/21/23 12:12 Active Medications: Current Medications Lactated Ringer's (Lr) 1,000 mls @ 50 mls/hr IVCONT .Q20H TRCAE Last Admin: 09/21/23 12:13 Dose: 50 mls/hr Home Medications ?Medication ?Instructions ?Recorded ?Confirmed ?Last Taken ?Type No Known Home Meds 09/21/23 09/21/23 Unknown History Exam Height,Weight and Vital Signs: Height 5 ft 8 in Weight 69.626 kg Last Vital Signs Temp 97.5 F 09/21/23 11:45 Pulse 69 09/21/23 11:45 Resp 19 09/21/23 11:45 BP 116/80 09/21/23 11:45 Pulse Ox 98 09/21/23 11:45 O2 Del Method Room Air 09/21/23 11:45 Airway Mallampati Class: II TM Dist: >3cm Neck ROM: Full Heart: RRR Lungs: CTA Assessment and Plan Assessment Anesthesia Assessment: Anesthesia Plan Discussed and Smoking Cess. Discussed Final Anesthetic Review Family History of Problems with Anesthesia: No History of Problems with Anesthesia: No NPO: Yes ASA Class: II Final Preanesthetic Review: Meds/Allgs Chart Reviewed, Consent Obtained/Reviewed and Anes Risks/Benef Reviewed Patient Risk: Low Procedure Risk: Low Anesthetic Plan Anesthetic Plan: GA Disposition: Standard PACU
--- NOTE | 2023-09-21 12:43 | MHC.SHP ---
Pre-Procedural Eval Section A - 24 Hr Update-Section A only Date of Service: 09/21/23 The patient is an INPATIENT: No Changes since office visit: No Cold of Flu in the past 2 weeks, No New Medical Problems, No Changes in Medication and No Patient answered all questions The patient has been examined within 24 hours of the surgical procedure. The History & Physical has been completed within 30 days and I have reviewed it.: Yes Section B - Complete if H&P > 30 days Chief Complaint: Unspecified fracture of fifth metacarpal bone, Allergies: Allergies Allergy/AdvReac Type Severity Reaction Status Date / Time No Known Allergies Allergy Verified 09/21/23 12:12 Exam Exam Comment: Right 5th metacarpal neck fracture, closed Plan Diagnosis/Plan: Unchanged I have reviewed the history and physical and performed a pertinent physical examination on my patient. No changes have occurred unless specified. Time Spent With Patient Time: Total time managing care of this patient today ____ minutes.
--- NOTE | 2023-09-21 12:44 | W.PM.OPN ---
Operative Note Operative Note Date of Service: 09/21/23 Narrative: Operative Note Narrative: Preop diagnosis: 1. Right 5th Metacarpal neck fracture Postop diagnosis: Same Procedure: 1. Right 5th Metacarpal fracture closed reduction percutaneous pinning 2. Ulnar nerve block Surgeon: Ellyn Ahumada MD Anesthesia: General Anesthesia Findings: Metacarpal fracture Implants: 0.062 K-wires times 1 Tourniquet time: None EBL: Minimal Specimen: None Drains: None Complications: None Disposition: Brought to the recovery room in stable condition Plan: Follow-up in 10-14 days for a wound check, postop radiographs and for placement in a short-arm cast Anticipate K-wire removal in 4 weeks based on interval bony healing Educate the patient that full fracture healing anticipated in approximately 8-12 weeks. Indications: The patient is 23 years old with right 5th metacarpal neck fracture . The risks and benefits of operative treatment, including but not limited to risk of damage to blood vessels, nerves, tendons, infection, recurrence, delayed or nonunion of fracture, persistent pain or numbness, incomplete resolution of preoperative symptoms, or need for further surgery were discussed with the patient and they wished to proceed with surgery. Procedure: Once consent was obtained patient was brought back to the operating suite and placed in the operating table in a supine position. . Perioperative antibiotics and general anesthesia was administered by the anesthesia team. A tourniquet was applied to the proximal aspect of the right upper extremity and the limb was prepped and draped in a standard surgical fashion. Tourniquet was not inflated during the case. The FluoroScan was used during the case to assist with our fracture reduction and placement of all implants. A closed reduction was performed on the patient's right 5th metacarpal neck fracture. I placed a single 0.062 K-wire retrograde through the head of the 5th metacarpal extending proximally across the fracture site to the base of the metacarpal. Fracture alignment was assessed for both angular and rotational malalignment, and I felt 1 K-wire would be sufficient.. Once satisfied with our fracture reduction and implant placement, the K-wires were bent and cut short and pin caps applied. Final fluoroscopic images were then obtained. The wounds were copiously irrigated with normal saline. An ulnar nerve block was then performed by infiltrating about the ulnar nerve at the wrist with some 0.5% plain ropivacaine for postop pain control. A Sterile dressing and short volar splint was applied. The patient appears to have tolerated the procedure well and with no complications. All digits were well vascularized at the conclusion of the case.
[2023-09-21 15:35] VITALS: BP 113/70; PULSE 59; RESP 16; TEMP 36.3; O2SAT 100
[2023-09-21 15:40] VITALS: BP 110/71; PULSE 74; RESP 18; O2SAT 100
--- NOTE | 2023-09-21 15:42 | HO.POSTANES ---
Post Anesthesia Evaluation Post Anesthesia Evaluation Date of Service: 09/21/23 Vital Signs: Vital Signs Temp Pulse Resp BP Pulse Ox O2 Del Method O2 Flow Rate 09/21/23 15:35 97.3 F 59 16 113/70 100 Simple Mask 6 09/21/23 11:45 97.5 F 69 19 116/80 98 Room Air Anesthesia: General LMA Mental Status: Awake Pain Control: Satisfactory Nausea/Vomiting: None Hydration: Adequate Anesthesia-Related Issues: No Anes. Related Issues
[2023-09-21 15:45] VITALS: BP 123/79; PULSE 53; RESP 18; O2SAT 100
[2023-09-21 15:50] VITALS: BP 121/80; PULSE 55; RESP 18; O2SAT 99
[2023-09-21 16:05] VITALS: BP 128/81; PULSE 61; RESP 18; TEMP 36.1; O2SAT 99
== END | disposition home or self-care (01) ==
PROVIDERS: Visit Provider Orthopaedic Surgery
PROC: (CPT 26615; principal; 2023-09-21 13:30)
DX: S62.336A Displaced fracture of neck of fifth metacarpal bone, right hand, initial encounter for closed fracture (principal); W22.8XXA Striking against or struck by other objects, initial encounter; Y93.71 Activity, boxing; Y92.9 Unspecified place or not applicable; Y99.9 Unspecified external cause status
CPT/HCPCS: 26608; J0131; J0690; J1100; J1596; J2250; J2405; J2704; J2795; J3010

== ENCOUNTER → 2023-09-21 11:22 | Outpatient (BNV) | payer OTHER, SELFPAY | PROVIDERS: Visit Provider Orthopaedic Surgery | DX: S62.336A Displaced fracture of neck of fifth metacarpal bone, right hand, initial encounter for closed fracture (principal) | CPT/HCPCS: 26608 ==

== ENCOUNTER 2023-10-03 09:29 | Outpatient (REF) | payer OTHER, SELFPAY ==
--- NOTE | ~2023-10-03 | XR_ITS ---
EXAMINATION: XR HAND, RIGHT CLINICAL INFORMATION: Pain in right hand, attention right fifth metacarpal status post CRPP. COMPARISON: Fluoroscopy 09/21/2023 in OR, x-rays right hand 09/19/2023 and 09/08/2023. TECHNIQUE: PA, lateral, and oblique views of the right hand. FINDINGS: Pin traverses the previously noted fracture of the distal fifth metacarpal, boxer's fracture. Hardware appears intact. Alignment is improved. There is some bridging callus formation. XR/XR hand RT min 3V IMPRESSION: Pin traverses the previously noted fracture of the distal fifth metacarpal, Boxer's fracture. Hardware appears intact. Alignment is improved. There is some bridging callus formation.
== END 2023-10-03 09:30 | disposition home or self-care (01) ==
LOC: HO.HOSX 09:29
DX: S62.366D Nondisplaced fracture of neck of fifth metacarpal bone, right hand, subsequent encounter for fracture with routine healing (principal)
CPT/HCPCS: 73130; 99212

== ENCOUNTER 2023-10-03 12:03 | Outpatient (AMB) | payer OTHER, SELFPAY ==
--- NOTE | 2023-10-03 12:18 | A.OFFVIS_ITS ---
Intake Visit Reasons: PO RT CRPP 5th MC neck 09/21/23 AR Intake Note: Dago 23 year old male who presents today for his PO RT CRPP 5th MC neck 09/21/23 AR. Dressing removed and xrays updated in office. Patient reports he is doing well, he denies any pain. States he had pain a couple of days ago when he accidentally bumped the dorsal aspect of hand on the wall however pain has subsided. Allergies No Known Allergies Allergy (Verified 10/03/23 12:30) HPI HPI PO RT CRPP 5th MC neck 09/21/23 AR: Details: Dago is a 23 year old right hand dominant man who presents S/P right 5th metac arpal CRPP, DOS: 09/21/23. He fractured his hand bare-knuckle boxing, DOI: 09/07/23. He wants to know how soon he can get back to boxing He says he is doing well overall and denies any pain at this time. He smokes Marijuana occasionally PFSH Medical History Marijuana use No known health problems Surgical History No pertinent past surgical history Social History Patient Tobacco Use Status: Never used Tobacco Substance Use Type: Marijuana Current occupational status: employed Current occupation: Electroplator Review of Systems Const All systems reviewed & are unremarkable except as noted in HPI and below Physical Exam Const General: no acute distress and alert Orientation/consciousness: patient oriented x3 Neuro General: patient oriented x3 Extrem Other: The patient was alert oriented and in no acute distress The pin-site is healing well with no erythema drainage or evidence of infection. Satisfactory clinical alignment with no malrotation Sensation is intact Cap refill is brisk Radiographs: 3 views of the right hand, with attention to the small finger, were taken and viewed by me today in clinic. They show a 5th metacarpal neck fracture with satisfactory fracture alignment and position of K-wire. Psych Appearance: grossly normal Affect: normal affect Attitude: cooperative Assessment & Plan Assessment & Plan (1) Nondisplaced fracture of neck of fifth metacarpal bone of right hand: Code(s): S62.366A - Nondisplaced fracture of neck of fifth metacarpal bone, right hand, initial encounter for closed fracture Category: Medical Plan Assessment & Plan: 1. Right 5th metacarpal neck fracture, S/P CRPP DOS: 09/21/23 The patient appears to be doing well post-operatively I educated him about the post-operative course I explained the signs and symptoms of infection, if the patient develops any new or worsening erythema, drainage, pain, or warmth they should contact the clinic or attend the ED. He was placed in a short arm finger spica cast to be worn for the next 2 weeks. I discussed activity modifications, he is to lift nothing heavier than a cellphone for the next 2weeks He should avoid any underwater activities at this time I explained the effects of smoking on bone healing and recommend he avoid Marijuana use for at least the next few weeks while he is healing. He expressed understanding He will follow up in 2 for K-wire removal, with X-rays, 3V R hand attn SF. I did explain that it will likely be at least 10-12 weeks before he could consider boxing, and even then there is no guarantee it would we fracture. Scribed for Ellyn Ahumada MD by Juan Luis Boyd, director biomedical engineering, on 10/03/23 at 12:30 PM, EST. Orders: Orders XR hand RT min 3V Today M79.641 - Pain in right hand Coding Level of Care Code Global (74929) Diagnoses Nondisplaced fracture of neck of fifth metacarpal bone of right hand S62.366A
== END 2023-10-03 13:11 | disposition home or self-care (01) ==
PROVIDERS: Visit Provider Orthopaedic Surgery
DX: S62.366A Nondisplaced fracture of neck of fifth metacarpal bone, right hand, initial encounter for closed fracture (principal)
CPT/HCPCS: 99024

== ENCOUNTER 2023-10-17 12:05 | Outpatient (REF) | payer OTHER, SELFPAY ==
--- NOTE | ~2023-10-17 | XR_ITS ---
EXAMINATION: XR HAND, RIGHT CLINICAL INFORMATION: Pain COMPARISON: X-ray 10/03/2023, 09/19/2023 TECHNIQUE: PA, lateral, and oblique views of the right hand. FINDINGS: Pin traverses the previously seen distal fifth metacarpal boxer's fracture, with stable position and alignment. Intact hardware. No suspicious kalyn-hardware lucency. The fracture plane is ill-defined . No new acute fractures seen. XR/XR hand RT min 3V IMPRESSION: Distal fifth metacarpal boxer's fracture, status post surgical fixation. Stable position and alignment. Findings suggest some healing changes..
== END 2023-10-17 12:06 | disposition home or self-care (01) ==
LOC: HO.HOSX 12:05
PROVIDERS: Visit Provider Orthopaedic Surgery
DX: S62.366D Nondisplaced fracture of neck of fifth metacarpal bone, right hand, subsequent encounter for fracture with routine healing (principal)
CPT/HCPCS: 73130; 99212

== ENCOUNTER 2023-10-17 15:08 | Outpatient (AMB) | payer OTHER, SELFPAY ==
--- NOTE | 2023-10-17 15:38 | A.OFFVIS_ITS ---
Vital Signs 10/17/23 15:40 Height 5 ft 8 in Weight 155 lb BMI 23.6 Handedness Right Intake Visit Reasons: PO RT CRPP 5th MC neck 09/21/23 AR-follow up Intake Note: Dago is a 23 year old right hand dominant male who presents today post operatively s/p Right 5th Metacarpal Fx CRPP. Patient reports that he is doing well. He stats that he tends to feel some tingling sensation in his right ring finger and pinky finger. Allergies No Known Allergies Allergy (Verified 10/17/23 15:40) HPI HPI PO RT CRPP 5th MC neck 09/21/23 AR-follow up: Details: Dago is a 23 year old right hand dominant man who presents S/P right 5th metacarpal CRPP, DOS: 09/21/23. He fractured his hand bare-knuckle boxing, DOI: 09/07/23. He says he is doing well overall and denies any pain at this time. He does report new mild tingling in his ring & small fingers. This was not present, or mentioned, at earlier appointments. He smokes Marijuana occasionally. He wants to know how soon he can get back to boxing [facility] Medical History Marijuana use No known health problems Surgical History No pertinent past surgical history Social History Patient Tobacco Use Status: Never used Tobacco Substance Use Type: Marijuana Current occupational status: employed Current occupation: Electroplator Physical Exam Vital Signs: BMI result Body Mass Index 23.6 Const General: no acute distress and alert Orientation/consciousness: patient oriented x3 Neuro General: patient oriented x3 Extrem Other: The patient was alert oriented and in no acute distress The pin-site is healing well with no erythema drainage or evidence of infection. K-wire removed today in clinic, which he tolerated well He was able to bring his fingers almost closed to a full fist before leaving clinic Satisfactory clinical alignment with no malrotation Fracture site non-tender Sensation is intact Cap refill is brisk Radiographs: 3 views of the right hand, with attention to the small finger, were taken and viewed by me today in clinic. They show a 5th metacarpal neck fracture with satisfactory fracture alignment and position of K-wire. Psych Appearance: grossly normal Affect: normal affect Attitude: cooperative Assessment & Plan Assessment & Plan (1) Nondisplaced fracture of neck of fifth metacarpal bone of right hand: Code(s): S62.366A - Nondisplaced fracture of neck of fifth metacarpal bone, right hand, initial encounter for closed fracture Category: Medical Plan Assessment & Plan: 1. Right 5th metacarpal neck fracture, S/P CRPP DOS: 09/21/23 K-wire removed: 10/17/23 The patient appears to be doing well post-operatively I educated him about the post-operative course I discussed activity modifications, he is to perform lightweight activities with his right hand He will continue to work on ROM exercises at home. I ordered OT hand therapy to work on ROM & strengthening. He should avoid any underwater activities for the next 5 days I explained the effects of smoking on bone healing and recommend he avoid Marijuana use for at least the next few weeks while he is healing. He expressed understanding He will follow up in 3-4 weeks for a ROM check I did explain that it will likely be at least 10-12 weeks post-operatively before he could consider boxing, and even then there is no guarantee it would not refracture. Scribed for Ellyn Ahumada MD by Juan Luis Boyd, paramedical aide, on 10/17/23 at 4:00 PM, EST. Orders: Orders XR hand RT min 3V Today M79.641 - Pain in right hand Coding Level of Care Code Global (57208) Diagnoses Nondisplaced fracture of neck of fifth metacarpal bone of right hand S62.366A
[2023-10-17 15:40] VITALS: BMI 23.6
== END 2023-10-17 16:37 | disposition home or self-care (01) ==
PROVIDERS: Visit Provider Orthopaedic Surgery
DX: S62.366A Nondisplaced fracture of neck of fifth metacarpal bone, right hand, initial encounter for closed fracture (principal)
CPT/HCPCS: 99024

== ENCOUNTER 2023-11-08 12:59 | Outpatient (AMB) | payer OTHER, SELFPAY ==
--- NOTE | 2023-11-08 13:00 | A.OFFVIS_ITS ---
Vital Signs 11/08/23 13:04 Handedness Right Intake Visit Reasons: PO RT CRPP 5th neck 09/21/23 AR- ROM check Intake Note: Dago is a 23 year old right hand dominant male who presents today post operatively s/p Right 5th Metacarpal Fx CRPP 09/21/23 w/ AR. Patient reports he is doing well, has no pain and feels his ROM has improved. He had OT scheduled for last week but was unable to make it, he does not feel like he needs OT at this time. Allergies No Known Allergies Allergy (Verified 11/08/23 13:04) HPI HPI PO RT CRPP 5th neck 09/21/23 AR- ROM check : Details: Dago is a 23 year old right hand dominant man who presents S/P right 5th metacarpal CRPP, DOS: 09/21/23. He fractured his hand bare-knuckle boxing, DOI: 09/07/23. He says he is doing well overall and denies any pain. He says the tingling in his ring & small fingers has since resolved. He has been working on ROM exercises at home and feels he is doing well. he was not able to attend OT hand therapy last week and he feels this is unnecessary. . He smokes Marijuana occasionally. Patient reports that he will likely not return to boxing, as he does not want to risk a potential injury like this again [facility] Medical History Marijuana use No known health problems Surgical History No pertinent past surgical history Social History Patient Tobacco Use Status: Never used Tobacco Substance Use Type: Marijuana Current occupational status: employed Current occupation: Electroplator Physical Exam Const General: no acute distress and alert Orientation/consciousness: patient oriented x3 Neuro General: patient oriented x3 Extrem Other: The patient was alert oriented and in no acute distress The pin-site is well-healed with no erythema drainage or evidence of infection. He can make a fist and extend all his digits Satisfactory clinical alignment with no malrotation Fracture site non-tender Sensation is intact Cap refill is brisk Psych Appearance: grossly normal Affect: normal affect Attitude: cooperative Assessment & Plan Assessment & Plan (1) Nondisplaced fracture of neck of fifth metacarpal bone of right hand: Code(s): S62.366A - Nondisplaced fracture of neck of fifth metacarpal bone, right hand, initial encounter for closed fracture Category: Medical Plan Assessment & Plan: 1. Right 5th metacarpal neck fracture, S/P CRPP DOS: 09/21/23 K-wire removed: 10/17/23 The patient appears to be doing well post-operatively I educated him about the post-operative course I did instruct that the patient can begin a slow ramp up to normal activity, but to listen to his body and ensure that he does not overdo it causing pain or repeat injury. Patient is amenable to this. He will continue to work on ROM exercises at home, he feels he is making good progress and does not need to attend OT hand therapy at this time. I explained the effects of smoking on bone healing and recommend he avoid Marijuana use for at least the next few weeks while he is healing. He expressed understanding He can follow up prn. I did explain that it will likely be at least 10-12 weeks post-operatively before he could consider boxing, and even then there is no guarantee it would not refracture. Patient states that if he chooses to return to boxing, he will adhere to these conditions. Scribed for CLIFF Barrera by Juan Luis Boyd, bilingual medical assistant, on 11/08/23 at 1:10 PM, EST. Coding Level of Care Code Global (11834) Diagnoses Nondisplaced fracture of neck of fifth metacarpal bone of right hand S62.366A
== END 2023-11-08 13:08 | disposition home or self-care (01) ==
DX: S62.366A Nondisplaced fracture of neck of fifth metacarpal bone, right hand, initial encounter for closed fracture (principal)
CPT/HCPCS: 99024

== ENCOUNTER → 2023-11-08 12:59 | Outpatient (BNVA) | payer OTHER, SELFPAY | DX: S62.366D Nondisplaced fracture of neck of fifth metacarpal bone, right hand, subsequent encounter for fracture with routine healing (principal); X58.XXXD Exposure to other specified factors, subsequent encounter | CPT/HCPCS: 99212 ==